=== PATIENT | male | born 1985 | race Hispanic/Latino ===

== ENCOUNTER 2024-04-28 23:43 | Emergency (ER) | payer BC, OTHER ==
[2024-04-29] MEDS ORDERED: LIDOCAINE VISCOUS 2% 10ML ORAL SOLN ONE (00:51)
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
[2024-04-29] MEDS ORDERED: HYDROCODONE/APAP 5/325 MG TAB ONE (01:53)
[2024-04-29 02:39] VITALS: TEMP 98.3
[2024-04-29 02:43] VITALS: BP 112/81; O2SAT 100
--- NOTE | 2024-04-29 08:56 | RAD REPORT ---
EXAM: XR Right Shoulder Complete, 2 or More Views CLINICAL HISTORY: Pain. TECHNIQUE: Two or more views of the right shoulder. COMPARISON: No relevant prior studies available. FINDINGS: Bones/joints: Unremarkable. No acute fracture. No dislocation. Soft tissues: Unremarkable. * A single impression for all exams can be found at the end of this report EXAM: XR Right Humerus, 2 or More Views CLINICAL HISTORY: Pain. TECHNIQUE: Frontal and lateral views of the right humerus. COMPARISON: No relevant prior studies available. FINDINGS: Bones/joints: Unremarkable. No acute fracture. No dislocation. Soft tissues: Unremarkable. * A single impression for all exams can be found at the end of this report IMPRESSION: XR Right Shoulder Complete, 2 or More Views: No acute injury. XR Right Humerus, 2 or More Views: No acute injury. Electronically signed by: Will Glynn MD 04/29/2024 12:47 AM CDT Due to temporary technical issues with PACS / Fluency reporting system, reports are being signed by the in-house radiologist without review as a courtesy to ensure prompt reporting. The interpreting radiologist is fully responsible for the content of the report. Transcribed Date/Time: 04/29/2024 8:56 AM
--- NOTE | 2024-04-29 08:59 | RAD REPORT ---
EXAM: XR Right Shoulder Complete, 2 or More Views CLINICAL HISTORY: Pain. TECHNIQUE: Two or more views of the right shoulder. COMPARISON: No relevant prior studies available. FINDINGS: Bones/joints: Unremarkable. No acute fracture. No dislocation. Soft tissues: Unremarkable. * A single impression for all exams can be found at the end of this report EXAM: XR Right Humerus, 2 or More Views CLINICAL HISTORY: Pain. TECHNIQUE: Frontal and lateral views of the right humerus. COMPARISON: No relevant prior studies available. FINDINGS: Bones/joints: Unremarkable. No acute fracture. No dislocation. Soft tissues: Unremarkable. * A single impression for all exams can be found at the end of this report IMPRESSION: XR Right Shoulder Complete, 2 or More Views: No acute injury. XR Right Humerus, 2 or More Views: No acute injury. Electronically signed by: Will Glynn MD 04/29/2024 12:47 AM CDT Due to temporary technical issues with PACS / Fluency reporting system, reports are being signed by the in-house radiologist without review as a courtesy to ensure prompt reporting. The interpreting radiologist is fully responsible for the content of the report. Transcribed Date/Time: 04/29/2024 8:59 AM
--- NOTE | 2024-04-29 09:03 | RAD REPORT ---
EXAM: CT Head and Cervical Spine Without Intravenous Contrast CLINICAL HISTORY: The patient is 38 years old and is Male; PAIN TECHNIQUE: Axial computed tomography images of the head/brain and cervical spine without intravenous contrast. S agittal and coronal reformatted images were created and reviewed. This CT exam was performed using one or more of the fol lowing dose reduction techniques: automated exposure control, adjustment of the mA and/or kV according to patient size, and /or use of iterative reconstruction technique. COMPARISON: No relevant prior studies available. FINDINGS: BRAIN: Unremarkable. No hemorrhage. No significant white matter disease. No edema. VENTRICLES: Unremarkable. No ventriculomegaly. SKULL: No acute fracture. SINUSES: Unremarkable as visualized. No acute sinusitis. MASTOID AIR CELLS: Unremarkable as visualized. No mastoid effusion. VERTEBRAE: Mild reversal of the normal cervical curvature is present. Vertebral body heights and alig nment are maintained. There is no acute fracture. DISCS/SPINAL CANAL/NEURAL FORAMINA: Intervertebral disc space narrowing with anterior and posterior o steophyte formation at C5-C6 and to a greater extent C6-C7 is present. Neural foraminal narrowing at these leve ls is noted secondary to posterior disc osteophyte complexes. The remaining intervertebral disc spaces are maintained. There i s no significant canal stenosis or neural foraminal narrowing. SOFT TISSUES: The soft tissues are normal. LUNG APICES: Unremarkable as visualized. IMPRESSION: 1. No acute intracranial findings. 2. Mild reversal of the normal cervical curvature is present. Findings may be secondary to patient po sition versus muscle spasm. Electronically signed by: Rhonda Gonzales MD 04/29/2024 12:42 AM CDT Due to temporary technical issues with PACS / Fluency reporting system, reports are being signed by the in-house radiologist without review as a courtesy to ensure prompt reporting. The interpreting radiologist is fully responsible for the content of the report. Transcribed Date/Time: 04/29/2024 9:02 AM
== END 2024-04-29 02:06 | disposition home or self-care (01) ==
LOC: ER 23:43
DX: S01.01XA Laceration without foreign body of scalp, initial encounter (principal); M25.511 Pain in right shoulder; M54.2 Cervicalgia; V57.5XXA Driver of pick-up truck or van injured in collision with fixed or stationary object in traffic accident, initial encounter
CPT/HCPCS: 12032; 70450; 72125; 99284